=== PATIENT | male | born 1950 | race Two or more races ===

== ENCOUNTER 2021-01-27 08:45 | Inpatient (IN) | payer OTHER ==
[~2021-01-27] VITALS: Ht 167.6 cm; Wt 68.0 kg
[2021-01-27] MEDS ORDERED: FOLIC ACID0.8 M1 PO (12:20)
[2021-01-27] MEDS ORDERED: COMPLETE OMEGA1 EACH PO (12:20)
[2021-01-27] MEDS ORDERED: MIRAL PO (12:21)
[2021-01-27] MEDS ORDERED: MAGNESIUM500 MG PO (12:21)
[2021-01-27] MEDS ORDERED: COLACE PO (12:22)
[2021-01-27] MEDS ORDERED: FARXIGA10 MG PO (12:22)
[2021-01-27] MEDS ORDERED: [UNRECOGNIZED DRUG - OTHER] PO (12:23)
[2021-01-27] MEDS ORDERED: VITAMIN D3 PO (12:23)
[2021-01-27] MEDS ORDERED: JANTOVEN3 MG (13:40)
[2021-01-27] MEDS ORDERED: WARFARIN (13:41)
[2021-01-27] MEDS ORDERED: CARVEDILOL25 M1 PO (13:42)
[2021-01-27] MEDS ORDERED: LOVENOX80 MG/0.8 SUBCUTANEO (16:17)
== END 2021-02-21 15:05 | disposition home or self-care (01) | DRG 330 ==
LOC: ADM 08:45 → EDSTATUS 08:45 → SURH 02-06 07:17 → O/R 02-06 07:17 → SURH 02-06 08:45
PROVIDERS: ADMIT Colon & Rectal Surgery; ATTEND Colon & Rectal Surgery
PROC: 0DBL4ZZ Excision of Transverse Colon, Percutaneous Endoscopic Approach (ICD-10-PCS; principal; 2021-02-06 12:45)
PROC: 4A12X4Z Monitoring of Cardiac Electrical Activity, External Approach (ICD-10-PCS; 2021-02-07)
PROC: 30233N1 Transfusion of Nonautologous Red Blood Cells into Peripheral Vein, Percutaneous Approach (ICD-10-PCS; 2021-02-14)
DX: K56.690 Other partial intestinal obstruction (principal); I48.20 Chronic atrial fibrillation, unspecified; D62 Acute posthemorrhagic anemia; K62.5 Hemorrhage of anus and rectum; I10 Essential (primary) hypertension; Z79.01 Long term (current) use of anticoagulants; Z95.2 Presence of prosthetic heart valve

== ENCOUNTER 2021-02-01 06:51 | Day surgery (SDC) | payer OTHER ==
[~2021-02-01 06:51] MED LIST: CARVEDILOL25 M1 PO; COLACE PO; COMPLETE OMEGA1 EACH PO; FARXIGA10 MG PO; FOLIC ACID0.8 M1 PO; JANTOVEN3 MG; LOVENOX80 MG/0.8 SUBCUTANEO; MAGNESIUM500 MG PO; MIRAL PO; VITAMIN D3 PO; WARFARIN; [UNRECOGNIZED DRUG - OTHER] PO
== END 2021-02-01 11:10 | disposition home or self-care (01) ==
LOC: AMB-ENDOS 06:51
PROVIDERS: ATTEND Colon & Rectal Surgery
DX: K62.4 Stenosis of anus and rectum (principal); K64.8 Other hemorrhoids; Z20.822 Contact with and (suspected) exposure to COVID-19